=== PATIENT | male | born 1930 | race Caucasian/White ===

== ENCOUNTER 2017-09-12 10:28 | Emergency (ER) | payer OTHER, MEDICARE ==
[~2017-09-12] VITALS: Ht 172.7 cm; Wt 71.2 kg
[2017-09-12 10:30] VITALS: BP_SYST 137
[2017-09-12] MEDS ORDERED: GABAPENTIN 100 MG CAPSULE PO ONE (11:45)
[2017-09-12] MEDS ORDERED: AZITHROMYCIN 250 MG TABLET PO ONE (13:00)
[2017-09-12 13:34] VITALS: BP_SYST 135
== END 2017-09-12 13:35 | disposition home or self-care (01) ==
LOC: SED 10:28
DX: J32.9 Chronic sinusitis, unspecified (principal); M79.2 Neuralgia and neuritis, unspecified; J44.9 Chronic obstructive pulmonary disease, unspecified; I50.9 Heart failure, unspecified; F03.90 Unspecified dementia, unspecified severity, without behavioral disturbance, psychotic disturbance, mood disturbance, and anxiety; Z88.0 Allergy status to penicillin
CPT/HCPCS: 70450; 99284; Q0144